=== PATIENT | female | born 1980 | race Caucasian/White ===

== ENCOUNTER 2021-05-19 07:08 | Day surgery (SDC) | payer OTHER ==
[~2021-05-19] VITALS: Ht 157.5 cm; Wt 56.5 kg
[2021-05-19 07:29] VITALS: BP 129/84
[2021-05-19] MEDS ORDERED: LACTATED RINGERS 1,000 ML IV SCH (07:30)
[2021-05-19] MEDS ORDERED: CHLORHEXIDINE 15 ML UDC PO ONE (07:30)
[2021-05-19] MEDS ORDERED: CHLORHEXIDINE 15 ML UDC ONE (07:32)
[2021-05-19] MEDS ORDERED: DESO1TAB70 PO (07:50)
[2021-05-19] MEDS ORDERED: EPINEPHRINE 1 MG/ML, 1ML ONE (08:55)
[2021-05-19] MEDS ORDERED: BUPIVACAINE/PF 0.5% ONE (08:55)
[2021-05-19] MEDS ORDERED: MIDAZOLAM 1 MG/ML, 2ML ONE (09:04)
[2021-05-19] MEDS ORDERED: FENTANYL PF 100 MCG/2ML ONE (09:05)
[2021-05-19] MEDS ORDERED: ACETAMINOPHEN 325 MG TABLET PO PRN (09:30)
[2021-05-19] MEDS ORDERED: LABETALOL 5MG/ML, 20ML IV PRN (09:30)
[2021-05-19] MEDS ORDERED: KETOROLAC 30 MG/1 ML IVPush PRN (09:30)
[2021-05-19] MEDS ORDERED: DIAZEPAM 5 MG/ML, 2ML IVPush PRN (09:30)
[2021-05-19] MEDS ORDERED: hydrALAzine 20 MG/ML, 1ML IV PRN (09:30)
[2021-05-19] MEDS ORDERED: ONDANSETRON 2MG/ML, 2ML IVPush PRN (09:30)
[2021-05-19] MEDS ORDERED: HYDROmorphone 1 MG/ML, 1ML INJ IVPush PRN (09:30)
[2021-05-19] MEDS ORDERED: OXYcodone 5 MG/5 ML ORAL.SOL UDC PO PRN (09:30)
[2021-05-19] MEDS ORDERED: MEPERIDINE/PF 25MG/0.5ML IVPush PRN (09:30)
[2021-05-19] MEDS ORDERED: FENTANYL PF 100 MCG/2ML IV PRN (09:30)
[2021-05-19] MEDS ORDERED: HYDR-2214 PO (09:41)
== END 2021-05-19 12:15 | disposition home or self-care (01) ==
LOC: OUT 07:08
PROVIDERS: ATTEND Surgery
DX: K43.2 Incisional hernia without obstruction or gangrene (principal); Z20.822 Contact with and (suspected) exposure to COVID-19
CPT/HCPCS: 49560; 81025; 87635; J0171; J2250; J3010; J7120